=== PATIENT | female | born 1995 | race Two or more races ===

== ENCOUNTER 2021-05-21 14:35 | Observation (INO) | payer OTHER ==
[~2021-05-21] VITALS: Ht 149.9 cm; Wt 100.7 kg
[2021-05-21] MEDS ORDERED: PREN-217 PO (14:45)
[2021-05-21 15:55] LABS: COVID AG,FIA SOURCE NASOPHARYNGEAL
[2021-05-21 16:21] VITALS: BP 111/69
== END 2021-05-21 15:30 | disposition home or self-care (01) ==
LOC: 4S 14:35
PROVIDERS: ADMIT Obstetrics & Gynecology Obstetrics; ATTEND Obstetrics & Gynecology Obstetrics
DX: O36.8130 Decreased fetal movements, third trimester, not applicable or unspecified (principal); Z20.822 Contact with and (suspected) exposure to COVID-19; Z3A.32 32 weeks gestation of pregnancy
CPT/HCPCS: 59025; 81003; 99219

== ENCOUNTER → 2021-05-21 | Emergency (ER) | payer OTHER ==
[~2021-05-21] VITALS: Ht 162.6 cm; Wt 97.7 kg
[~2021-05-21] MED LIST: PREN-217 PO
[2021-05-21 14:43] VITALS: BP 153/98
== END | disposition home or self-care (01) ==
LOC: EMS 14:22
DX: R50.9 Fever, unspecified (principal); Z53.21 Procedure and treatment not carried out due to patient leaving prior to being seen by health care provider

== ENCOUNTER 2025-08-25 05:10 | Emergency (ER) | payer OTHER ==
[~2025-08-25] VITALS: Ht 149.9 cm; Wt 77.3 kg
[2025-08-25] MEDS: LORazepam 2 MG/ML VIAL IVP ONE (05:51)
[2025-08-25 06:10] LABS: CALCIUM, TOTAL 8.7 mg/dL (8.8-10.5); CREATININE 0.64 mg/dL (0.60-1.30); GLOMERULAR FILTR. RATE CALC > 60 mL/min (>60); GLUCOSE,RANDOM 112 mg/dL (70-110); SODIUM SERUM 139 mmol/L (136-145); UREA NITROGEN, BLOOD 9 mg/dL (7-18)
[2025-08-25 06:12] LABS: PLATELET COUNT (AUTO) 257 K/uL (150-450); RED BLOOD CELL COUNT(AUTO) 3.91 MIL/uL (4.00-5.20); RED CELL DISTRIBUTION WIDTH 13.6 % (11.5-14.5); WHITE BLOOD COUNT (AUTO) 8.5 K/uL (4.5-11.0)
[2025-08-25 06:18] LABS: TROPONIN I-HIGH SENSITIVITY Less Than 4 ng/L (<51)
[2025-08-25] MEDS ORDERED: HYDR50CA7 PO (06:57)
[2025-08-25 07:00] VITALS: BP 129/75; PULSE 76; RESP 18; TEMP 97.3; O2SAT 100
== END 2025-08-25 07:18 | disposition home or self-care (01) ==
LOC: EMS 05:12
DX: F41.9 Anxiety disorder, unspecified (principal); R06.02 Shortness of breath; R07.89 Other chest pain; Z79.899 Other long term (current) drug therapy
CPT/HCPCS: 99285; 96374; 71045; 80048; 84484; 84703; 85025; 36415; 93005; G0480; J2060